=== PATIENT | female | born 2005 | race Hispanic/Latino ===

== ENCOUNTER 2024-12-11 00:29 | Emergency (ER) | payer MEDICAID ==
[~2024-12-11] VITALS: Ht 165.1 cm; Wt 57.2 kg
[2024-12-11] MEDS: ACETAMINOPHEN 325 MG TAB PO ONE (01:41)
[2024-12-11 03:04] VITALS: PULSE 68; RESP 17; TEMP 98.7
[2024-12-11 03:05] VITALS: BP 106/59; PULSE 68; RESP 17; TEMP 98.7; O2SAT 100
== END 2024-12-11 03:12 | disposition home or self-care (01) ==
LOC: FSED 00:54
DX: O26.892 Other specified pregnancy related conditions, second trimester (principal); R12 Heartburn; R07.89 Other chest pain; F41.9 Anxiety disorder, unspecified; R94.31 Abnormal electrocardiogram [ECG] [EKG]
CPT/HCPCS: 80048; 80076; 81003; 81025; 82553; 83880; 84484; 85025; 93005; 99284